=== PATIENT | male | born 1955 | race Two or more races ===

== ENCOUNTER 2024-02-03 07:45 | Inpatient (IN) | payer OTHER ==
[~2024-02-03] VITALS: Ht 180.3 cm; Wt 328.9 kg
[2024-02-03 09:15] LABS: HEMATOCRIT 43.3 % (39.0-48.0); HEMOGLOBIN 14.8 g/dL (13-16.00); MEAN CELL VOLUME 94.9 fL (80.0-100.00); MEAN CORPUSCULAR HEMOGLOBIN 32.4 pg (27.00-32.0); MEAN CORPUSCULAR HGB CONC 34.2 g/dl (32.0-36.0); PLATELET COUNT 258 K/uL (150-450); RED BLOOD COUNT 4.56 M/uL (4.00-6.00); RED CELL DISTRIBUTION WIDTH 13.8 % (11.5-14.5)
[2024-02-03 09:17] LABS: URINE APPEARANCE Clear; URINE BILIRRUBIN Negative (NEGATIVE); URINE BLOOD Negative; URINE COLOR Yellow; URINE GLUCOSE Negative (NEGATIVE); URINE KETONE Negative (NEGATIVE); URINE LEUKOCYTE Negative; URINE NITRATE Negative; URINE PROTEIN 30 (NEGATIVE); URINE UROBILINOGEN 0.2 E.U./dl
[2024-02-03 09:21] LABS: URINE BACTERIA 6.2 uL (0.0-1933)
[2024-02-03 09:30] LABS: INR 1.05; PROTHROMBIN TIME 11.4 SECONDS (9.0-11.5)
[2024-02-03 09:33] LABS: URINE RBC 1.6 uL (0.0-20.8); URINE WBC 0.6 uL (0.0-23.2)
[2024-02-03] MEDS ORDERED: IRBESARTAN300 MG (09:39)
[2024-02-03] MEDS ORDERED: GLUMETZA500 MG (09:40)
[2024-02-03] MEDS ORDERED: COLCHICINE0.6 MG (09:40)
[2024-02-03] MEDS ORDERED: ATORVASTATIN CA10 MG (09:40)
[2024-02-03] MEDS ORDERED: ALLOPURINOL 300MG (09:41)
[2024-02-03] MEDS ORDERED: CLONAZEPAM2 MG (09:41)
[2024-02-03] MEDS ORDERED: OXYBUTYNIN (09:42)
[2024-02-03 10:18] LABS: ALBUMIN 4.1 gm/dL (3.4-5.0); BILIRUBIN TOTAL 0.54 mg/dL (0.3-1.2); CALCIUM 9.4 mg/dL (8.5-10.1); CREATININE SERUM 0.78 mg/dL (0.70-1.30); GFR 98.4; GLOBULINA 4.2 G/DL (2.4-3.5); POTASSIUM 4.21 mEq/L (3.5-5.1); TOTAL PROTEIN 8.3 gm/dL (6.4-8.2)
[2024-02-03 12:00] LABS: RH POSITIVE
[2024-02-08] MEDS ORDERED: CEFAZOLIN SODIUM 1,000 MG VIAL IV ONE ×2 (12:00→18:30)
[2024-02-08] MEDS ORDERED: TRANEXAMIC ACID 100MG/1ML (1000MG) AMPUL IV ONE ×2 (12:00)
[2024-02-08] MEDS ORDERED: MORPHINE SULFATE 4 MG/ML VIAL IV ONE ×2 (12:15→19:15)
[2024-02-08] MEDS ORDERED: KETOROLAC TROMETHAMINE 60 MG VIAL IM ONE (12:15)
[2024-02-08] MEDS ORDERED: ALLOPURINOL300 MG (14:12)
[2024-02-08] MEDS ORDERED: CETIRIZINE HCL10 MG (14:12)
[2024-02-08] MEDS ORDERED: OXYBUTYNIN CHLO10 MG (14:12)
[2024-02-08] MEDS ORDERED: FLONASE16 GM (14:12)
[2024-02-08] MEDS ORDERED: DICLOFENAC SODI50 GM (14:12)
[2024-02-08] MEDS ORDERED: MELOXICAM15 MG (14:13)
[2024-02-08] MEDS ORDERED: VANCOMYCIN HCL 1,000 MG VIAL IV ONE (18:30)
[2024-02-08] MEDS ORDERED: THROMBIN,HU/FIBRINOGEN/CALCIUM 10 ML SYRINGE TOP ONE (18:30)
[2024-02-08] MEDS ORDERED: MORPHINE SULFATE 4 MG/ML CARTRIDGE IV PRN (19:15)
[2024-02-08] MEDS ORDERED: ONDANSETRON HCL 2 MG/ML VIAL IV PRN (19:15)
[2024-02-08] MEDS ORDERED: SODIUM CHLORIDE 0.45 % 1,000 ML IV SCH (19:15)
[2024-02-08 20:27] LABS: HEMATOCRIT 38.1 % (39.0-48.0); HEMOGLOBIN 13.3 g/dL (13-16.00); RED BLOOD COUNT 4.06 M/uL (4.00-6.00)
[2024-02-08] MEDS ORDERED: GENTAMICIN SULFATE 40 MG/ML VIAL IV SCH (21:00)
[2024-02-08 22:33] VITALS: BP 144/74; O2SAT 99
[2024-02-09] MEDS ORDERED: CEFAZOLIN SODIUM 1,000 MG VIAL IV SCH
[2024-02-09 00:23] VITALS: BP 160/80; O2SAT 98
[2024-02-09 06:33] LABS: HEMATOCRIT 35.9 % (39.0-48.0); HEMOGLOBIN 12.3 g/dL (13-16.00); MEAN CELL VOLUME 95.4 fL (80.0-100.00); MEAN CORPUSCULAR HEMOGLOBIN 32.8 pg (27.00-32.0); MEAN CORPUSCULAR HGB CONC 34.3 g/dl (32.0-36.0); PLATELET COUNT 195 K/uL (150-450); RED BLOOD COUNT 3.76 M/uL (4.00-6.00); RED CELL DISTRIBUTION WIDTH 13.8 % (11.5-14.5)
[2024-02-09] MEDS ORDERED: ACETAMINOPHEN WITH CODEINE 1 UDTAB TABLET PO PRN (07:30)
[2024-02-09 08:00] VITALS: BP 130/78; O2SAT 99
[2024-02-09] MEDS ORDERED: CELECOXIB 200 MG CAPSULE PO SCH (09:00)
[2024-02-09] MEDS ORDERED: RIVAROXABAN 10 MG TAB PO SCH (09:00)
[2024-02-09] MEDS ORDERED: SENNA/DOCUSATE SODIUM 1 TAB TABLET PO SCH (09:00)
[2024-02-09] MEDS ORDERED: MetFORMIN HCL 500 MG TABLET PO SCH (09:00)
[2024-02-09] MEDS ORDERED: IRBESARTAN 300 MG TABLET PO SCH (09:00)
[2024-02-09] MEDS ORDERED: IRON FUM,PS/FOLIC/BCOMP,C NO.9 1 CAP CAPSULE PO SCH (09:00)
[2024-02-09] MEDS ORDERED: BACITRACIN 28.35 GM OINT.TUBE TOP SCH ×2 (09:00)
[2024-02-09 16:00] VITALS: BP 134/72; O2SAT 95
[2024-02-10 01:08] VITALS: BP 158/75; O2SAT 97
[2024-02-10] MEDS ORDERED: Septra Ds Tablet PO (06:34)
[2024-02-10] MEDS ORDERED: XARELTO10 MG PO (06:34)
[2024-02-10] MEDS ORDERED: INTEGRA PLUS C1 EACH PO (06:34)
[2024-02-10] MEDS ORDERED: ACETAMINOPHEN-1 EAC2 PO (06:35)
[2024-02-10 07:47] LABS: HEMATOCRIT 33.2 % (39.0-48.0); HEMOGLOBIN 11.5 g/dL (13-16.00); MEAN CELL VOLUME 95.3 fL (80.0-100.00); MEAN CORPUSCULAR HEMOGLOBIN 32.9 pg (27.00-32.0); MEAN CORPUSCULAR HGB CONC 34.5 g/dl (32.0-36.0); PLATELET COUNT 189 K/uL (150-450); RED BLOOD COUNT 3.49 M/uL (4.00-6.00); RED CELL DISTRIBUTION WIDTH 13.5 % (11.5-14.5)
[2024-02-10 08:37] VITALS: BP 135/75; O2SAT 98
[2024-02-10] MEDS ORDERED: SULFAMETHOXAZOLE/TRIMETHOPRIM DS 1 TAB PO SCH (09:00)
[2024-02-10 16:00] VITALS: BP 140/80; O2SAT 97
== END 2024-02-10 17:22 | DRG 468 ==
LOC: O/R 02-08 06:00 → SURG 02-08 07:00
PROVIDERS: ADMIT Orthopaedic Surgery Sports Medicine; ATTEND Orthopaedic Surgery Sports Medicine
PROC: 0SRD0J9 Replacement of Left Knee Joint with Synthetic Substitute, Cemented, Open Approach (ICD-10-PCS; 2024-02-08)
PROC: 0SPD0JZ Removal of Synthetic Substitute from Left Knee Joint, Open Approach (ICD-10-PCS; principal; 2024-02-08 07:00)
DX: T84.033A Mechanical loosening of internal left knee prosthetic joint, initial encounter (principal); M17.12 Unilateral primary osteoarthritis, left knee; M65.862 Other synovitis and tenosynovitis, left lower leg; I10 Essential (primary) hypertension